=== PATIENT | male | born 1960 | race Caucasian/White ===

== ENCOUNTER 2022-08-17 07:58 | Outpatient (CLI) | payer OTHER, SELFPAY ==
--- NOTE | 2022-08-17 | ECG_ITS ---
Measurements Intervals [place] Rate: 89 P: 40 NC: 148 QRS: 52 QRSD: 92 T: 31 QT: 346 QTc: 422 Interpretive Statements SINUS RHYTHM VENTRICULAR BIGEMINY BASELINE ARTIFACT- V1-V2 ABNORMAL ECG COMPARED TO ECG 03/11/2019 13:12:44 VENTRICULAR BIGEMINY NOW PRESENT Electronically Signed On 08-17-2022 10:14:17 [employer] by Filiberto Nagy D.O.
[2022-08-17 09:55] LABS: Basophils Absolute Auto 0.1 K/mm3 (0.0-0.1); Basophils Percent Auto 1.7 % (0.2-1.2); Eosinophils Absolute Auto 0.2 K/mm3 (0-0.3); Eosinophils Percent Auto 3.6 % (0-4.4); Hematocrit 27.9 % (42.0-52.0); Hemoglobin 7.8 g/dL (14.0-18.0); Immature Granulocyte Absolute 0.01 K/mm3 (0.00-0.031); Immature Granulocyte Percent A 0.2 % (0-0.5); Lymphocytes Absolute Auto 1.47 K/mm3 (0.9-3.2); Lymphocytes Percent Auto 30.8 % (18.3-44.2); Mean Corpuscular Hemoglobin 18.9 pg (26-34); Mean Corpuscular Volume 67.7 fl (80-100); Mean Platelet Volume 10.2 fl (7.4-10.4); Monocytes Absolute Auto 0.5 K/mm3 (0.1-0.6); Neutrophils Absolute Auto 2.6 K/mm3 (1.3-6.7); Neutrophils Percent Auto 53.7 % (45.5-73.1); Platelet Count Result 311 k/mm3 (150-375); Red Blood Count 4.12 M/mm3 (4.6-6.20); Red Cell Distribution Width 18.1 % (11.5-14.5); White Blood Count 4.8 K/mm3 (4.5-10.0)
[2022-08-17 09:57] LABS: Appearance Urine Clear (Clear); Bilirubin Urine Negative (Negative); Blood Urine Negative (Negative); Color Urine Yellow (Yellow); Glucose Urine UA Negative (Negative); Ketones Urine Negative (Negative); Leukocyte Esterase Ur Negative LEU/UL (Negative); Nitrate Urine Negative (Negative); Protein Urine Trace mg/dL (Negative); Urobilinogen Urine 0.2 mg/dL (<2.0); pH Urine 7.5 (5.0-9.0)
[2022-08-17 10:05] LABS: Alanine Aminotransferase 16 U/L (6-50); Alkaline Phosphatase 73 U/L (38-126); Anion Gap 6 mmol/L (8-16); Aspartate Amino Transferase 20 U/L (17-59); Bilirubin,Total 1.4 mg/dL (0.2-1.3); Blood Urea Nitrogen 11 mg/dL (9-20); CRP < 0.5 mg/dL (<1.0); Calcium 8.9 mg/dL (8.4-10.2); Carbon Dioxide 27 mmol/L (22-30); Chloride 107 mmol/L (98-107); Cholesterol 186 mg/dL (0-200); Estimated Glomerular Filt Rate > 60; Glucose 96 mg/dL (65-110); HDL Direct 31 mg/dL; Potassium 4.2 mmol/L (3.4-5.0); Sodium 140 mmol/L (137-145); Triglycerides 103 mg/dL (<150)
[2022-08-17 10:13] LABS: LDL Cholesterol Direct 119 mg/dL
[2022-08-17 10:16] LABS: Add Urine Microscopic? NO
[2022-08-17 10:31] LABS: Anisocytosis 2+ (NORMAL); Hypochromasia 2+ (NORMAL); Ovalocytes 1+ (NORMAL); Platelet Estimate Adequate (Adequate); Schistocytes None Seen (NORMAL); Target Cells 1+ (NORMAL)
== END 2022-08-17 07:59 | disposition home or self-care (01) ==
PROVIDERS: Visit Provider Family Medicine Sports Medicine
DX: Z00.00 Encounter for general adult medical examination without abnormal findings (principal); R93.41 Abnormal radiologic findings on diagnostic imaging of renal pelvis, ureter, or bladder; D64.9 Anemia, unspecified; E66.9 Obesity, unspecified; Z12.5 Encounter for screening for malignant neoplasm of prostate
CPT/HCPCS: 36415; 80053; 80061; 81003; 82607; 82746; 84443; 85025; 86140; 93005

== ENCOUNTER 2022-09-19 14:31 | Emergency (ER) | payer OTHER, SELFPAY ==
[2022-09-19 15:26] VITALS: BP 137/72; PULSE 52; RESP 16; TEMP 37.1; O2SAT 99
--- NOTE | 2022-09-19 16:02 | ED.SKABFB ---
HPI - Skin/Abscess/Foreign Bdy General Chief complaint: Skin/Abscess/Foreign Body Stated complaint: rash Time Seen by Provider: 09/19/22 16:03 Source: patient Mode of arrival: ambulatory Limitations: no limitations History of Present Illness HPI narrative: 62-year-old male presented for complaint of rash to the right upper chest and back worsening over the last 2 days. He endorses at the onset he felt a small itchy area then noticed red painful lesions spreading to the chest, neck and back. States today the pain is better. Denies eye involvement, vision changes, eye pain, dizziness, n/v/d/f/c. Not taking anything for symptoms. Denies changes to lotion, soap, detergent etc.. No other areas on the body with similar lesions. Denies contacts with similar lesions. Related Data Home Medications Medication Instructions Recorded Confirmed ferrous sulfate 325 mg (65 mg 325 mg PO DAILY 09/19/22 09/19/22 iron) tablet omeprazole 40 mg capsule,delayed 40 mg PO DAILY 09/19/22 09/19/22 release vitamin B complex (B 1 tablet PO DAILY 09/19/22 09/19/22 Complex-Vitamin B12 tablet) Allergies Allergy/AdvReac Type Severity Reaction Status Date / Time No Known Allergies Allergy Verified 09/19/22 15:27 Review of Systems Review of Systems: CONSTITUTIONAL: Denies body aches, fever, chills, or sweats. EYES: Denies visual changes, redness, or discharge. ENT: Denies rhinorrhea, congestion CARDIOVASCULAR: Denies chest pain, palpitations, or edema. RESPIRATORY: Denies cough or dyspnea. GASTROINTESTINAL: Denies abdominal pain, nausea, vomiting, or diarrhea. SKIN: per HPI MUSCULOSKELETAL: Denies back pain, joint pain, or myalgia. NEUROLOGIC: Denies headache, numbness, tingling, or weakness. ON LICENSE OF [facility] Past Medical History Medical History (Updated 09/19/22 @ 16:32 by Yenifer Baum APRN) Anemia Arrhythmia Comments At time of signature, I have reviewed and agree with nursing past medical, surgical, social and family history unless otherwise noted. Please see nursing chart for further information. There is no relevant family history pertinent to the presenting complaint Exam Narrative: GENERAL: Well-appearing HEAD: Normocephalic, atraumatic. EYES: conjunctivae clear, and EOMI. ENT: Mucous membranes moist. Oropharynx without edema, erythema or lesions. NECK: Supple. No lymphadenopathy CHEST: Clear to auscultation. HEART: Regular rate and rhythm. SKIN: Warm, dry. Scattered erythematous raised lesions surrounding vesicles scattered over right anterior/posterior upper chest, right neck, and right shoulder consistent with zoster. Minimally tender, no active drainage. NEURO: Alert and oriented x3. Course Course Emergency Course: Patient is aware of diagnosis, understands and agrees to treatment plan. Anticipatory guidance given. Patient agrees to follow-up as directed and is aware of reasons to seek care at the emergency department. Portions of this record may have been created with voice recognition software Level of Care: Express Care Visit Vital Signs Vital signs: Vital Signs Temperature 98.7 F 09/19/22 15:26 Pulse Rate 52 L 09/19/22 15:26 Respiratory Rate 16 09/19/22 15:26 Blood Pressure 137/72 09/19/22 15:26 Pulse Oximetry 99 09/19/22 15:26 Oxygen Delivery Room Air 09/19/22 15:26 Temperature 98.7 F 09/19/22 15:26 Pulse Rate 52 L 09/19/22 15:26 Respiratory Rate 16 09/19/22 15:26 Blood Pressure 137/72 09/19/22 15:26 Pulse Oximetry 99 09/19/22 15:26 Oxygen Delivery Room Air 09/19/22 15:26 Reviewed MDM - Skin/Abscess/Foreign Bdy MDM Narrative Medical decision making narrative: Discussed physical exam findings with patient. Advised supportive measures and signs/symptoms to go to the ER. Pt is appropriate for outpt treatment and f/u. Instructed patient to go to nearest ER immediately for any worsening symptoms including but not limited to: fever, spreading rash i
== END 2022-09-19 16:23 | disposition home or self-care (01) ==
PROVIDERS: Emergency Provider Nurse Practitioner Family; PCP Family Medicine Sports Medicine
DX: B02.9 Zoster without complications (principal); D64.9 Anemia, unspecified
CPT/HCPCS: 99213; G0463

== ENCOUNTER 2023-03-18 11:27 | Outpatient (CLI) | payer OTHER, SELFPAY ==
[2023-03-18 12:13] LABS: Basophils Absolute Auto 0.1 K/mm3 (0.0-0.1); Eosinophils Absolute Auto 0.2 K/mm3 (0-0.3); Eosinophils Percent Auto 2.6 % (0-4.4); Hematocrit 45.3 % (42.0-52.0); Hemoglobin 15.3 g/dL (14.0-18.0); Immature Granulocyte Absolute 0.01 K/mm3 (0.00-0.031); Immature Granulocyte Percent A 0.2 % (0-0.5); Lymphocytes Absolute Auto 1.87 K/mm3 (0.9-3.2); Mean Corpuscular HGB Conc 33.8 g/dl (32-36); Mean Corpuscular Hemoglobin 30.2 pg (26-34); Mean Corpuscular Volume 89.3 fl (80-100); Mean Platelet Volume 10.4 fl (7.4-10.4); Monocytes Absolute Auto 0.5 K/mm3 (0.1-0.6); Monocytes Percent Auto 8.6 % (2.6-8.5); Neutrophils Absolute Auto 3.4 K/mm3 (1.3-6.7); Neutrophils Percent Auto 56.6 % (45.5-73.1); Platelet Count Result 226 k/mm3 (150-375); Red Blood Count 5.07 M/mm3 (4.6-6.20); Red Cell Distribution Width 13.6 % (11.5-14.5)
[2023-03-18 12:29] LABS: Alanine Aminotransferase 25 U/L (6-50); Albumin Level 4.6 g/dL (3.5-5.1); Alkaline Phosphatase 86 U/L (38-126); Anion Gap 8 mmol/L (8-16); Aspartate Amino Transferase 26 U/L (17-59); Bilirubin,Total 1.8 mg/dL (0.2-1.3); Blood Urea Nitrogen 13 mg/dL (9-20); Calcium 9.2 mg/dL (8.4-10.2); Carbon Dioxide 24 mmol/L (22-30); Chloride 105 mmol/L (98-107); Cholesterol 240 mg/dL (0-200); Estimated Glomerular Filt Rate > 60; Glucose 91 mg/dL (65-110); HDL Direct 39 mg/dL; Potassium 3.9 mmol/L (3.4-5.0); Sodium 137 mmol/L (137-145); Triglycerides 127 mg/dL (<150)
[2023-03-18 12:40] LABS: LDL Cholesterol Direct 157 mg/dL
[2023-03-18 13:36] LABS: Thyroid Stimulating Hormone Reflex 0.966 uIU/mL (0.465-4.68)
== END 2023-03-18 11:28 | disposition home or self-care (01) ==
PROVIDERS: PCP Family Medicine Sports Medicine
DX: I49.3 Ventricular premature depolarization (principal); R00.2 Palpitations
CPT/HCPCS: 36415; 80053; 80061; 84443; 85025